=== PATIENT | male | born 1965 | race Caucasian/White ===

== ENCOUNTER 2025-05-23 08:20 | Emergency (ER) | payer OTHER ==
[~2025-05-23] VITALS: Ht 170.2 cm; Wt 78.0 kg
[2025-05-23 08:22] VITALS: O2SAT 98
[2025-05-23] MEDS: IBUPROFEN 600MG TABLET PO ONE (08:49)
[2025-05-23] MEDS: METHOCARBAMOL 500MG TABLET PO ONE (08:50)
[2025-05-23] MEDS ORDERED: METH-653 MT (10:03)
[2025-05-23] MEDS ORDERED: IBUP-1455 MT (10:03)
[2025-05-23 10:09] VITALS: BP 125/80; PULSE 77; RESP 18; TEMP 37; O2SAT 98
== END 2025-05-23 10:11 | disposition home or self-care (01) ==
LOC: ER 08:20
DX: S20.219A Contusion of unspecified front wall of thorax, initial encounter (principal); S09.90XA Unspecified injury of head, initial encounter; I10 Essential (primary) hypertension; V43.52XA Car driver injured in collision with other type car in traffic accident, initial encounter; Y93.89 Activity, other specified; Y92.89 Other specified places as the place of occurrence of the external cause; Y99.8 Other external cause status
CPT/HCPCS: 71045; 93005; 99284